=== PATIENT | male | born 1955 | race Caucasian/White ===

== ENCOUNTER 2020-04-26 07:26 | Emergency (ER) | payer MEDICAID, OTHER ==
[~2020-04-26] VITALS: Ht 188 cm; Wt 81.8 kg
[2020-04-26] MEDS ORDERED: METH4TAB81 PO (08:03)
[2020-04-26] MEDS ORDERED: AMOX500C2 PO (08:03)
[2020-04-26] MEDS ORDERED: ONDA4TAB6 PO (08:03)
[2020-04-26] MEDS ORDERED: METR500T PO (08:03)
[2020-04-26] MEDS ORDERED: HYDR-3965 PO (08:03)
[2020-04-26 08:14] VITALS: BP 127/82
== END 2020-04-26 08:15 | disposition home or self-care (01) ==
LOC: ER 07:27
DX: K02.9 Dental caries, unspecified (principal); Z79.899 Other long term (current) drug therapy
CPT/HCPCS: 99283